=== PATIENT | female | born 1995 | race Caucasian/White ===

== ENCOUNTER 2019-09-27 11:28 | Outpatient (RCR) | payer OTHER, SELFPAY ==
[2019-09-11 15:20] VITALS: BP 122/87; PULSE 94
[2019-09-18 10:25] VITALS: BP 128/78; PULSE 103
[2019-09-27 12:05] VITALS: BP 139/98; PULSE 94
== END 2019-10-11 08:22 | disposition home or self-care (01) ==
LOC: ANHOBOP 11:28
PROVIDERS: PCP Pediatrics; Visit Provider Obstetrics & Gynecology
DX: O26.893 Other specified pregnancy related conditions, third trimester (principal); R03.0 Elevated blood-pressure reading, without diagnosis of hypertension; Z3A.32 32 weeks gestation of pregnancy; Z3A.33 33 weeks gestation of pregnancy; Z3A.35 35 weeks gestation of pregnancy
CPT/HCPCS: 59025

== ENCOUNTER 2019-10-02 10:23 | Outpatient (CLI) | payer OTHER, SELFPAY ==
[2019-10-02 10:47] VITALS: BP 135/100; PULSE 93
[2019-10-02 10:49] LABS: Basophils Absolute Auto 0.1 K/mm3 (0.0-0.1); Basophils Percent Auto 0.4 % (0.2-1.2); Eosinophils Absolute Auto 0.3 K/mm3 (0-0.3); Eosinophils Percent Auto 2.2 % (0-4.4); Hematocrit 38.3 % (37.0-47.0); Hemoglobin 12.6 g/dL (12.0-15.0); Immature Granulocyte Absolute 0.08 K/mm3 (0.00-0.031); Immature Granulocyte Percent A 0.5 % (0-0.5); Lymphocytes Percent Auto 16.9 % (18.3-44.2); Mean Corpuscular HGB Conc 32.9 g/dl (32-36); Mean Corpuscular Hemoglobin 28.9 pg (26-34); Mean Corpuscular Volume 87.8 fl (80-100); Mean Platelet Volume 11.8 fl (7.4-10.4); Monocytes Absolute Auto 1.4 K/mm3 (0.1-0.6); Monocytes Percent Auto 9.5 % (2.6-8.5); Neutrophils Absolute Auto 10.4 K/mm3 (1.3-6.7); Neutrophils Percent Auto 70.5 % (45.5-73.1); Platelet Count Result 262 k/mm3 (150-375); Red Blood Count 4.36 M/mm3 (4.2-5.4); White Blood Count 14.8 K/mm3 (4.5-10.0)
[2019-10-02 11:01] LABS: Alanine Aminotransferase 13 U/L (4-35); Albumin Level 3.6 g/dL (3.5-5.1); Alkaline Phosphatase 200 U/L (38-126); Aspartate Amino Transferase 18 U/L (14-36); Bilirubin,Total 0.2 mg/dL (0.2-1.3); Blood Urea Nitrogen 5 mg/dL (7-17); Carbon Dioxide 18 mmol/L (22-30); Chloride 105 mmol/L (98-107); Estimated Glomerular Filt Rate > 60; Glucose 89 mg/dL (65-105); Potassium 3.9 mmol/L (3.4-5.0); Sodium 136 mmol/L (137-145); Uric Acid 4.5 mg/dL (2.5-7.5)
[2019-10-02 11:10] VITALS: BP 130/94; PULSE 103
[2019-10-02 11:16] VITALS: BP 137/92; PULSE 86
[2019-10-02 11:28] VITALS: RESP 16; TEMP 36.9
== END 2019-10-02 11:45 | disposition home or self-care (01) ==
LOC: ANHOBOP 10:26 → ANHOBPP 10:29
PROVIDERS: PCP Pediatrics; Visit Provider Obstetrics & Gynecology
DX: O13.9 Gestational [pregnancy-induced] hypertension without significant proteinuria, unspecified trimester (principal); Z3A.00 Weeks of gestation of pregnancy not specified
CPT/HCPCS: 36415; 59025; 80053; 84550; 85025; 99199

== ENCOUNTER 2019-10-06 13:30 | Observation (INO) | payer OTHER, SELFPAY ==
[2019-10-06] VITALS (8 sets, daily range): BP systolic 125–142; BP diastolic 87–105; PULSE 91–110; BMI 34.2
[2019-10-06 14:41] LABS: Basophils Absolute Auto 0.1 K/mm3 (0.0-0.1); Basophils Percent Auto 0.4 % (0.2-1.2); Eosinophils Absolute Auto 0.1 K/mm3 (0-0.3); Eosinophils Percent Auto 1.2 % (0-4.4); Hematocrit 36.6 % (37.0-47.0); Hemoglobin 12.3 g/dL (12.0-15.0); Immature Granulocyte Absolute 0.06 K/mm3 (0.00-0.031); Immature Granulocyte Percent A 0.5 % (0-0.5); Lymphocytes Absolute Auto 2.12 K/mm3 (0.9-3.2); Lymphocytes Percent Auto 18.1 % (18.3-44.2); Mean Corpuscular HGB Conc 33.6 g/dl (32-36); Mean Corpuscular Hemoglobin 29.1 pg (26-34); Mean Corpuscular Volume 86.7 fl (80-100); Mean Platelet Volume 11.5 fl (7.4-10.4); Monocytes Absolute Auto 1.3 K/mm3 (0.1-0.6); Monocytes Percent Auto 10.8 % (2.6-8.5); Neutrophils Absolute Auto 8.1 K/mm3 (1.3-6.7); Platelet Count Result 259 k/mm3 (150-375); Red Blood Count 4.22 M/mm3 (4.2-5.4); Red Cell Distribution Width 13.1 % (11.5-14.5); White Blood Count 11.7 K/mm3 (4.5-10.0)
[2019-10-06 14:52] LABS: Add Urine Microscopic? YES; Alanine Aminotransferase 12 U/L (4-35); Albumin Level 3.4 g/dL (3.5-5.1); Alkaline Phosphatase 219 U/L (38-126); Appearance Urine Cloudy (Clear); Aspartate Amino Transferase 18 U/L (14-36); Bacteria Urine 1+ /hpf; Bilirubin Urine Negative (Negative); Bilirubin,Total 0.3 mg/dL (0.2-1.3); Blood Urine Negative (Negative); Budding Yeast Urine Present /hpf; Calcium 8.6 mg/dL (8.4-10.2); Carbon Dioxide 20 mmol/L (22-30); Chloride 103 mmol/L (98-107); Color Urine Yellow (Yellow); Estimated Glomerular Filt Rate > 60; Glucose 84 mg/dL (65-105); Glucose Urine UA Negative (Negative); Ketones Urine 1+ mg/dL (Negative); Leukocyte Esterase Ur Trace LEU/UL (Negative); Mucus Urine Heavy /lpf; Nitrate Urine Negative (Negative); Potassium 3.5 mmol/L (3.4-5.0); Protein Urine 2+ mg/dL (Negative); Sodium 137 mmol/L (137-145); Specific Grav Ur 1.019 (1.001-1.035); Squamous Epithelial Cell Urine Few /hpf (Few); Uric Acid 5.1 mg/dL (2.5-7.5); Urobilinogen Urine Negative mg/dL (<2.0)
[2019-10-06 14:55] LABS: Blood Urea Nitrogen < 2 mg/dL (7-17)
--- NOTE | 2019-10-06 15:37 | OBADM ---
This patient, Andressa Skaggs, admitted to the OB room OB Post 115 for observation. Patient/family oriented to hospital policies and general routines including ID bracelet, bed and alarms, visiting hours, pain management, procedures, bathroom and other care routines, personal items, smoking policy, room service/diet, call light, and visiting hours. Patient/Family are encouraged to report perceived risks to care and to ask questions if they do not understand what they are told or what they should do.
--- NOTE | 2019-11-06 18:05 | P.PNOB_ITS ---
OB - Triage/Final Diagnosis Evaluation Laboratory results: Laboratory Tests 10/06/19 10/06/19 10/06/19 14:31 14:31 14:31 WBC 11.7 H RBC 4.22 Hgb 12.3 Hct 36.6 L MCV 86.7 MCH 29.1 MCHC 33.6 RDW 13.1 Plt Count 259 MPV 11.5 H Immature Gran % (Auto) 0.5 Neut % (Auto) 69.0 Lymph % (Auto) 18.1 L [place] % (Auto) 10.8 H Eos % (Auto) 1.2 Baso % (Auto) 0.4 Lymph # (Auto) 2.12 [place] # (Auto) 1.3 H Eos # (Auto) 0.1 Baso # (Auto) 0.1 Abs Immat Gran (auto) 0.06 H Absolute Neuts (auto) 8.1 H Absolute Nucleated RBC 0.0 Nucleated RBC % 0.0 Sodium 137 Potassium 3.5 Chloride 103 Carbon Dioxide 20 L BUN < 2 L Creatinine 0.50 L Estim Creat Clear Calc Not Reportable Estimated GFR > 60 Glucose 84 Uric Acid 5.1 Calcium 8.6 Total Bilirubin 0.3 AST 18 ALT 12 Alkaline Phosphatase 219 H Total Protein 7.0 Albumin 3.4 L Urine Color Yellow Urine Appearance Cloudy H Urine pH 6.0 Ur Specific [place] 1.019 Urine Protein 2+ H Urine Glucose (UA) Negative Urine Ketones 1+ H Ur Blood (Man) Negative Urine Nitrate Negative Urine Bilirubin Negative Urine Urobilinogen Negative Leukocyte Esterase Rfl Trace H Urine RBC 3-5 H Urine WBC 4-6 H Ur Squamous Epith Cells Few Urine Bacteria 1+ H Urine Mucus Heavy H Urine Yeast (Budding) Present H Final Diagnosis (1) False labor: Code(s): O47.9 - False labor, unspecified Status: Acute (2) Chronic hypertension affecting : Code(s): O10.919 - Unspecified pre-existing hypertension complicating , u nspecified trimester Status: Acute
== END 2019-10-06 15:49 | disposition home or self-care (01) ==
PROVIDERS: Admitting Provider Obstetrics & Gynecology; Visit Provider Obstetrics & Gynecology
DX: O47.03 False labor before 37 completed weeks of gestation, third trimester (principal); O10.913 Unspecified pre-existing hypertension complicating pregnancy, third trimester; Z3A.36 36 weeks gestation of pregnancy
CPT/HCPCS: 36415; 80053; 81001; 84550; 85025; G0378; G0379

== ENCOUNTER 2019-10-07 18:04 | Outpatient (CLI) | payer OTHER, SELFPAY ==
[2019-10-07 18:22] VITALS: BMI 34.1
[2019-10-07 18:45] LABS: Collection Time Urine 24 HOURS
[2019-10-07 18:49] LABS: Patient Weight 199 Lbs
[2019-10-07 18:50] LABS: Specific Gravity Ur 1.009; Total Volume 24 Hour Urine 1500 ml
[2019-10-07 18:56] LABS: Creatinine Urine 69.3 mg/dL; Total Protein Urine Random 13 mg/dL
[2019-10-07 19:02] LABS: Creatinine Clearance Urine 69.3 ml/min (75-125); Total Protein Urine 24 Hr 13 MG/DAY (28-141)
== END 2019-10-07 18:05 | disposition home or self-care (01) ==
PROVIDERS: Visit Provider Obstetrics & Gynecology
DX: O13.9 Gestational [pregnancy-induced] hypertension without significant proteinuria, unspecified trimester (principal); Z3A.00 Weeks of gestation of pregnancy not specified
CPT/HCPCS: 81050; 82575; 84156

== ENCOUNTER 2019-10-10 06:19 | Inpatient (IN) | payer OTHER, SELFPAY ==
[2019-10-10] VITALS (60 sets, daily range): BP systolic 111–162; BP diastolic 74–114; PULSE 74–131; RESP 16–18; TEMP 36.7–37.7; O2SAT 91–100
[2019-10-10 07:02] LABS: Basophils Percent Auto 0.3 % (0.2-1.2); Eosinophils Absolute Auto 0.2 K/mm3 (0-0.3); Eosinophils Percent Auto 1.5 % (0-4.4); Hematocrit 37.5 % (37.0-47.0); Hemoglobin 12.7 g/dL (12.0-15.0); Immature Granulocyte Absolute 0.08 K/mm3 (0.00-0.031); Immature Granulocyte Percent A 0.6 % (0-0.5); Lymphocytes Absolute Auto 3.01 K/mm3 (0.9-3.2); Lymphocytes Percent Auto 22.2 % (18.3-44.2); Mean Corpuscular HGB Conc 33.9 g/dl (32-36); Mean Corpuscular Hemoglobin 28.7 pg (26-34); Mean Corpuscular Volume 84.8 fl (80-100); Mean Platelet Volume 11.6 fl (7.4-10.4); Monocytes Absolute Auto 1.3 K/mm3 (0.1-0.6); Monocytes Percent Auto 9.6 % (2.6-8.5); Neutrophils Absolute Auto 8.9 K/mm3 (1.3-6.7); Neutrophils Percent Auto 65.8 % (45.5-73.1); Platelet Count Result 273 k/mm3 (150-375); Red Blood Count 4.42 M/mm3 (4.2-5.4); White Blood Count 13.6 K/mm3 (4.5-10.0)
[2019-10-10] MEDS: LACTATED RINGERS 1,000 ML 125 ML IV CONT (07:06)
[2019-10-10] MEDS: AMPICILLIN 2 GM/NS 100 ML 2 GM/100 ML BAG IVPB (07:07)
--- NOTE | 2019-10-10 07:10 | LDADM ---
This patient, Andressa Skaggs, was admitted to Labor/Delivery/Recovery 108 on 10/10/19 at 06:19. Plans for labor, pain management and were discussed with patient. Patient/family oriented to hospital policies and general routines including ID bracelet, bed and alarms, visiting hours, pain management, procedures, bathroom and other care routines, personal items, smoking policy, room service/diet and guest tray routines, security routines, and visiting hours. Patient/Family are encouraged to report perceived risks to care and to ask questions if they do not understand what they are told or what they should do. See OBIX for further documentation.
[2019-10-10 07:54] LABS: HIV 1/2 Ab P24 Ag Result Negative (Negative)
--- NOTE | 2019-10-10 08:34 | WPDOBADMIT ---
Obstetrics - Admit Note Admission Note: record reviewed. Additions to the history and/or subsequent changes in the physical findings follow. 24 y/o at 37 weeks here with CHTN, worsening bp control. No headache or visual field change. A recent 24 hour urine collection returned with an obviously erroneous result, has had 2+ proteinuria on dipstick. Good movement. GBS bacteruria in early preganncy. AVSS (bp elevated) NST reactive TOCO: contractions every 2-5 min ABD soft, nontender, gravid, vertex EXT nontender Cervix 4/50/-2. AROM with clear fluid. Vertex. A: IUP at term with CHTN, worsening bp control. P: Oxytocin. Anticipate .
[2019-10-10 08:48] LABS: Alanine Aminotransferase 13 U/L (4-35); Albumin Level 3.7 g/dL (3.5-5.1); Alkaline Phosphatase 228 U/L (38-126); Aspartate Amino Transferase 41 U/L (14-36); Bilirubin,Total 0.3 mg/dL (0.2-1.3); Carbon Dioxide 18 mmol/L (22-30); Chloride 107 mmol/L (98-107); Estimated Glomerular Filt Rate > 60; Glucose 84 mg/dL (65-105); Potassium 3.2 mmol/L (3.4-5.0); Sodium 135 mmol/L (137-145); Uric Acid 5.1 mg/dL (2.5-7.5)
[2019-10-10 09:07] LABS: Blood Urea Nitrogen < 2 mg/dL (7-17)
[2019-10-10] MEDS: NIFEdipine 10 MG CAPSULE PO (09:10)
[2019-10-10] MEDS: ONDANSETRON INJ 4 MG/2 ML VIAL IV PUSH (10:13)
[2019-10-10] MEDS: AMPICILLIN 1 GM/NS 50 ML 1 GM/50 ML BAG IVPB (10:51)
--- NOTE | 2019-10-10 13:10 | PM.OBDSVD ---
DS: Diagnosis Discharge Diagnosis (1) Chronic hypertension affecting : Code(s): O10.919 - Unspecified pre-existing hypertension complicating , unspecified trimester Status: Acute (2) Normal delivery at term: Code(s): O80 - Encounter for full-term uncomplicated delivery Status: Acute OB - DS: Summary OB Procedures : None OB Procedures Intrapartum: Spontaneous Vag Delivery OB Procedures: : None DS: Data Data Completed and Pending Labs on day of discharge: Labs from last 24 hours 10/10/19 10/10/19 10/10/19 08:30 06:42 06:42 WBC RBC Hgb Hct MCV MCH MCHC RDW Plt Count MPV Immature Gran % (Auto) Neut % (Auto) Lymph % (Auto) [place] % (Auto) Eos % (Auto) Baso % (Auto) Lymph # (Auto) [place] # (Auto) Eos # (Auto) Baso # (Auto) Abs Immat Gran (auto) Absolute Neuts (auto) Absolute Nucleated RBC Nucleated RBC % Sodium 135 L Potassium 3.2 L Chloride 107 Carbon Dioxide 18 L BUN < 2 L Creatinine 0.50 L Estim Creat Clear Calc Not Reportable Estimated GFR > 60 Glucose 84 Uric Acid 5.1 Calcium 9.0 Total Bilirubin 0.3 AST 41 H ALT 13 Alkaline Phosphatase 228 H Total Protein 7.0 Albumin 3.7 RPR Pending HIV 1&2 Ab/P24 Ag 4thGn Blood Type A Positive Antibody Screen Negative 10/10/19 10/10/19 06:42 06:42 WBC 13.6 H RBC 4.42 Hgb 12.7 Hct 37.5 MCV 84.8 MCH 28.7 MCHC 33.9 RDW 13.0 Plt Count 273 MPV 11.6 H Immature Gran % (Auto) 0.6 H Neut % (Auto) 65.8 Lymph % (Auto) 22.2 [place] % (Auto) 9.6 H Eos % (Auto) 1.5 Baso % (Auto) 0.3 Lymph # (Auto) 3.01 [place] # (Auto) 1.3 H Eos # (Auto) 0.2 Baso # (Auto) 0.0 Abs Immat Gran (auto) 0.08 H Absolute Neuts (auto) 8.9 H Absolute Nucleated RBC 0.0 Nucleated RBC % 0.0 Sodium Potassium Chloride Carbon Dioxide BUN Creatinine Estim Creat Clear Calc Estimated GFR Glucose Uric Acid Calcium Total Bilirubin AST ALT Alkaline Phosphatase Total Protein Albumin RPR HIV 1&2 Ab/P24 Ag 4thGn Negative Blood Type Antibody Screen Discharge Plan Discharge Attending physician on discharge: Cachorro Paredes Discharging Clinician: Cachorro Paredes Patient Disposition: Home, Self-Care Activity: pelvic rest Diet: regular Discharge Instructions: Education: Mom and Baby Guide Given to: Mother Follow-Up: Call your delivering provider's office for an appointment to be seen in: 1 Week Mom and baby should come to the [facility] for the follow-up appointment. Appointment Date/Time: October 13, 2019 at 9:00 am What to expect at your follow-up visit: Blood Pressure Check Call [phone] if you are unable to keep your appointment time. BREAST CARE: 1. Wear a snug supportive bra. 2. For engorgement discomfort: Breast Feeding: A. Apply warm moist washcloths B. Express milk as needed to relieve engorgement C. Wear loose clothing Bottle Feeding: A. May apply ice packs 3. For sore nipples: A. Identify correct latch-on B. Apply warm moist washcloths before and after nursing C. Air dry nipples after nursing D. May apply Lansinoh cream to nipples PERINEAL CARE: 1. Until bleeding stops, use your zaida bottle after urinating 2. Change your pad frequently throughout the day 3. You may take sitz baths several times a day (fill your bathtub with warm water and soak for 20 minutes.) Do NOT bathe in the water 4. No tub baths until seen by your physician - You may shower ACTIVITY: 1. Rest as much as possible. 2. Do not exercise or lift anything heavier than your baby (such as laundry or other children.) 3. Avoid stairs or driving as much as possible. 4. Do not put anything i
--- NOTE | 2019-10-10 13:11 | PM.OBPRVD ---
OB - Delivery Note Procedure Delivery date: 10/10/19 Procedure: Induction of labor with Induction method: AROM and per pitocin protocol Delivery monitor: external FHT, external uterine and internal uterine Route of delivery: Laceration description: None Specimen: Yes (cord blood, placenta) Estimated blood loss (mL): 80 Anesthesia type: None Disposition: PACU Complications: None Narrative: 24 y/o at 37 weeks gestation who presented to the hospital for induction of labor because of worsening blood pressure control in the setting of chronic hypertension. Oxytocin was administered intravenously. Amniotomy was performed with return of clear fluid. Her labor progressed and her cervix dilated completely. She pushed with good effort and delivered the 's head to the perineum, followed by the body. The nose and mouth were bulb suctioned. After a delay, the cord was clamped and cut. The was handed off the field. Cord blood was collected. The placenta delivered spontaneously and was grossly normal in appearance. The usual 3 vessel cord was noted. The perineum was intact. The cervix was inspected and was free of laceration. Sponge, needle and instrument counts were correct. The patient was taken to recovery room in stable condition. The went to the nursery in stable condition. I was present and scrubbed for the entire delivery. Baby Date of : 10/10/19 Time of : 12:51 Weeks of gestation at delivery: 37 Infant gender: Male Weight (pounds): 6 Weight (ounces): 13 presentation: vertex position: Right Occiput Posterior Placenta delivery description: Spontaneous and Normal Configuration cord vessel description: 3 Vessels score one minute: 8 score five minutes: 9
--- NOTE | 2019-10-11 01:00 | PC.NURSE ---
Breast pump provided due to 's inability to latch. Instructions given on breast pump care and usage, pumping schedule, nipple care, and collection and storage of breast milk. Encouraged [id number], breast massage and manual expression to stimulate supply. Pumping log provided and reviewed. Assessed patient for correct flange size, placement and draw. Patient verbalizes and demonstrates understanding of instructions.
[2019-10-11] MEDS: IBUPROFEN 600 MG TABLET PO ×2 (04:24→14:57)
[2019-10-11 05:42] LABS: Hematocrit 33.4 % (37.0-47.0); Hemoglobin 11.1 g/dL (12.0-15.0)
[2019-10-11 07:21] LABS: Rapid Plasma Reagin Non-Reactive (NonReactive)
[2019-10-11 08:10] VITALS: BP 127/90; PULSE 90; RESP 16; TEMP 36.6; O2SAT 99
--- NOTE | 2019-10-11 09:30 | PC.NURSE ---
Consult with pt., other reports bj6 has been sleepy and having difficulties with latch and maintaining latch. Mother has initiated pumping and have supplemented a few times since . Discussed and the 37 week , with possible sleepiness and inconsistency with latch and effective suckling. Suggested mother put to breast each feeding for 10-15 minutes, the follow with 10-15 mls of supplement of EBM Formula then pump for 15 minutes. Mother was set up with pumping and is pumping without difficulties or discomfort. Assisted with to breast. Reviewed positioning/alignment, holding breast and asymmetrical latch on. Infant was sleepy and made no effort to latch. Attempt for 10 minutes, mother will follow above plan with supplementation and pumping.
[2019-10-11] MEDS: MULTIVIT/MIN/PREN/FOL AC/IRON TABLET 1 TAB PO (11:21)
[2019-10-11] MEDS: MEASLES,MUMPS,RUBELLA VACCINE 0.5 ML VIAL SUB-Q (11:22)
[2019-10-11] MEDS: LANOLIN (LANSINOH) 7.5 GM CREAM 1 APPLIC TOPICAL (16:50)
--- NOTE | 2019-10-11 17:26 | PM.OBPNVD ---
OB - PN: Subj Subjective Date/time seen: 10/11/19 1200 Narrative: Pain OK. Would like circumcision for son. OB - PN: Obj Data Labs CBC & Chem 7: 10/11/19 04:18 10/10/19 08:30 Labs: Laboratory Results - last 24 hr 10/10/19 10/11/19 06:42 04:18 Hgb 11.1 L Hct 33.4 L RPR Non-reactive OB - PN A/P Plan Comments: A: PPD#1, doing well. P: Routine care. Reviewed circumcision. Exam Psych: Other: AVSS ABD soft, nontender, fundus firm. EXT nontender
[2019-10-11 20:45] VITALS: BP 142/99; PULSE 85; RESP 16; TEMP 36.9
[2019-10-12 08:20] VITALS: BP 118/89; PULSE 70; RESP 16; TEMP 37.2; O2SAT 99
--- NOTE | 2019-10-12 08:30 | PC.NURSE ---
PT introductions made and plan of care discussed per post , pain management, breast feeding, daily care activities and pending discharge to home. PT verbalized understanding of such care.
--- NOTE | 2019-10-12 08:50 | PC.NURSE ---
Consulted with patient, mother states is sporadic with eagerness and feeding. Once her is awake and will latch and other feedings it is difficult to bottle feed. Discussed this is normal for the early 37 week . Reviewed feeding cues, frequencies, duration of feedings, feeding elimination flow sheet, and signs of adequate intake. Demonstrated stimulation techniques to wake for feeding. Assisted with infant to breast. Infant make weak attempts to latch and was unable to maintain. Mother has good colostrum easily expressed. Offered and explained the nipple shield. Mother is willing to attempt with shield. Nipple shield provided to mother due to ineffective feeding. Discussed nipple shield precautions and possible complications. Instructions given on application and cleaning of shield. Patient able to return demonstration on proper application of shield. Discussed the need to initiate pumping if continues to nurse with the shield. Patient verbalizes understanding. Reviewed positioning/alignment in football, holding breast in C hold and guided asymmetrical latch on. Discussed rational for each. With shield in place was able to latch correctly. Infant nursed eagerly with steady draws and occasional swallowing followed with long pausing. Reviewed signs of a correct latch, effective nursing and suck swallow ratio. Infant was able to maintain latch without discomfort to mother. Nipple care reviewed. Advised to start a regular feeding plan to attempt to breast each feeding for 15 minutes, then supplement 15 mls EBM/formula followed with pumping for 10-15 minutes. Reviewed infant may require increasing amounts of supplement until her milk is in and feeding more regularly at breast. Mother is pleased with regular feeding plan as she is discharging today.
--- NOTE | 2019-10-12 08:53 | PM.OBPNVD ---
OB - PN: Subj Subjective Date/time seen: 10/12/19 08:53 Narrative: Pain OK. Would like to go home. OB - PN: Obj Data Labs CBC & Chem 7: 10/11/19 04:18 10/10/19 08:30 OB - PN A/P Plan Comments: A: PPD#2, doing well. P: Home to f/u 6 weeks. Exam Psych: Other: AVSS ABD soft, nontender, fundus firm EXT nontender
--- NOTE | 2019-10-12 09:00 | PC.NURSE ---
Mother is feeding as required and waking to feed if needed. is currently meeting outcomes for weight, output, jaundice and feeding frequencies. Mother states she feels confident to continue with feeding plan of breast, supplement and pump at home. Reviewed transition to breast milk, signs of adequate intake, and engorgement/relief. Instructed to call ICP if intake/output less than required. Reviewed regular medications mother is taking. Information provided per [place]. Reviewed community resources on the [employer] website and in the Mom/Baby guide. Information on outpatient services provided. Discussed when to discontinue supplement and pumping: suggested mother continue to offer supplement until feeding can be observed by follow up RN or at OP LC apt. Mother has no further questions at this time.
[2019-10-12 09:11] VITALS: PULSE 70; RESP 16; O2SAT 99
[2019-10-12] MEDS: DOCUSATE SODIUM 100 MG CAPSULE PO (09:11)
[2019-10-12] MEDS: IBUPROFEN 600 MG TABLET PO (09:11)
[2019-10-12] MEDS: MULTIVIT/MIN/PREN/FOL AC/IRON TABLET 1 TAB PO (09:12)
--- NOTE | 2019-10-12 12:00 | PC.NURSE ---
Patient viewed the discharge video Mother & Baby Care, The First Two Weeks . Patient was given the opportunity and encouraged to ask questions. Patient verbalized understanding of information shared and has been given the mother/baby guide for home reference.
--- NOTE | 2019-10-12 14:30 | PC.NURSE ---
PT received discharge instructions per protocol and verbalized understanding of such instructions. Follow up appts confirmed
--- NOTE | 2019-10-12 15:05 | PC.NURSE ---
PT discharged to home ambulatory accompanied by significant other and to waiting war. Follow up appts confirmed
[2019-10-13 09:46] VITALS: BP 138/88; PULSE 85; RESP 18; TEMP 36.8
== END 2019-10-12 15:05 | disposition home or self-care (01) | DRG 807 ==
LOC: ANHLDR 13:11 → ANHOB2 15:40
PROVIDERS: Admitting Provider Obstetrics & Gynecology; Visit Provider Obstetrics & Gynecology
DX: O13.4 Gestational [pregnancy-induced] hypertension without significant proteinuria, complicating childbirth (principal); Z37.0 Single live birth; Z3A.37 37 weeks gestation of pregnancy; O99.824 Streptococcus B carrier state complicating childbirth
CPT/HCPCS: 36415; 80053; 84550; 85014; 85018; 85025; 86592; 86703; 86850; 86900; 86901; 88307; 90710; A9270; G0432; J0290; J2405; J2590; J3010; J7120

== ENCOUNTER 2020-12-20 06:40 | Emergency (ER) | payer OTHER, SELFPAY ==
[2020-12-20 06:45] VITALS: BP 140/109; PULSE 101; RESP 18; TEMP 36.5; O2SAT 98
--- NOTE | 2020-12-20 07:31 | ED.BACK ---
HPI - Back Pain/Injury General Chief Complaint: Back Pain/Injury Stated Complaint: neck and upper back pain Source: patient Mode of arrival: ambulatory Limitations: no limitations History of Present Illness HPI Narrative: this is a 25-year-old female presents with a 2 day history of left upper back and neck spasm that started 2 days ago after she lifted her child and felt sharp pain and muscle spasm, has no numbness or tingling radiating down her arms does have some radiation of her pain into her left upper back neck and left shoulder area has good range of motion in her shoulder with decreased range of motion in her neck secondary to muscle spasm and pain, there is no headache no blurry vision no fever chills no nausea vomiting. MD elicited complaint: back pain Onset (ago): day(s) Timing: constant Severity: moderate Pain scale (0-10): 5 Similar Symptoms Previously: No Quality: spasming Location: left upper back Radiation: neck Exacerbating factors: movement Relieving factors: immobilization Context: while lifting and turning/twisting Related Data Allergies Allergy/AdvReac Type Severity Reaction Status Date / Time nickel Allergy Unknown Skin Verified 10/05/19 12:19 Reaction Review of Systems Review of Systems: All systems reviewed & are unremarkable except as noted in HPI and below PMFSH Past Medical History Medical History Patient denies medical problems Family History Family History Grandparent Lung cancer Father Crohn's disease Hypertension Social History Social History Smoking status: Never smoker Substance use: never Spiritual care concerns: No Exam Const: General: no acute distress Orientation/consciousness: patient oriented x3 HENMT: Head: normal to inspection Eyes: Pupils: Equal, round and reactive pupils present Neck: Other: left upper back and neck muscle tenderness with palpation with decreased range of motion of her neck secondary to spasm and pain with no radiculopathy no numbness or tingling. Chest: Chest palpation & inspection: normal inspection of the chest Resp: Effort & Inspection: normal respiratory effort Auscultation: clear to auscultation bilaterally Cardio: Rate: regular rate Rhythm: regular rhythm : General: Yes no CVA tenderness Back/Spine/Pelvis: Back: no CVA tenderness Skin: General skin exam: normal color Rashes: no rashes Psych: Appearance: grossly normal Mental Status: mental status grossly normal Affect: normal affect Course Course Emergency Course: Patient received Toradol IM for neck pain and muscle spasm advised patient to take medicine that was sent to her pharmacy and if symptoms persists should follow-up with her primary care doctor for possible MRI. Vital Signs Vital signs: Vital Signs Temperature 36.5 C 12/20/20 06:45 Pulse Rate 101 H 12/20/20 06:45 Respiratory Rate 18 12/20/20 06:45 Blood Pressure 140/109 H 12/20/20 06:45 Pulse Oximetry 98 12/20/20 06:45 Temperature 36.5 C 12/20/20 06:45 Pulse Rate 101 H 12/20/20 06:45 Respiratory Rate 18 12/20/20 06:45 Blood Pressure 140/109 H 12/20/20 06:45 Pulse Oximetry 98 12/20/20 06:45 Critical Care Time Critical Care Time Critical Care Time: No Discharge Plan Discharge Clinical Impression: Muscle strain Patient Disposition: Home, Self-Care Condition: Stable Instructions: Antibiotic Form, Cervical Strain (ED) Additional Instructions: take medicine as prescribed and follow-up with primary care physician in approximately 10 days if symptoms persist or worsen. Can use a warm compress to affected area along with medication prescribed. Prescriptions: New naproxen 500 mg tablet 500 mg PO BID Qty: 14 RF: 0 cyclobenzaprine 5 mg tablet 5 mg PO TID Qty: 20 RF: 0
[2020-12-20] MEDS: KETOROLAC (*BKC) 60 MG/2 ML VIAL IM (07:35)
[2020-12-20 08:07] VITALS: BP 138/106
== END 2020-12-20 08:09 | disposition home or self-care (01) ==
PROVIDERS: Emergency Provider Emergency Medicine
DX: T14.8XXA Other injury of unspecified body region, initial encounter (principal); X50.9XXA Other and unspecified overexertion or strenuous movements or postures, initial encounter
CPT/HCPCS: 96372; 99283; J1885

== ENCOUNTER 2024-07-13 12:29 | Outpatient (CLI) | payer OTHER, SELFPAY ==
--- NOTE | 2024-07-13 12:30 | ECG_ITS ---
Test Date: 2024-07-13 12:52:39 Measurements Intervals [place] Rate: 63 P: 10 KS: 146 QRS: 7 QRSD: 104 T: 17 QT: 414 QTc: 424 Interpretive Statements SINUS RHYTHM WITH SINUS ARRHYTHMIA INCOMPLETE RIGHT BUNDLE BRANCH BLOCK [90+ ms QRS DURATION, TERMINAL R IN V1/V2, 40+ ms S IN I/aVL/V4/V5/V6] No previous ECG available for comparison Electronically Signed On 07-13-2024 13:03:30 SPRAY I PAINTER by Marilynn Miranda M.D.
== END 2024-07-13 12:30 | disposition home or self-care (01) ==
LOC: ANHSURGERY 12:36
PROVIDERS: PCP Family Medicine; Visit Provider Obstetrics & Gynecology
DX: O16.9 Unspecified maternal hypertension, unspecified trimester (principal); Z3A.00 Weeks of gestation of pregnancy not specified; I45.10 Unspecified right bundle-branch block
CPT/HCPCS: 93005

== ENCOUNTER 2024-07-18 01:27 | Day surgery (SDC) | payer OTHER, SELFPAY ==
--- NOTE | 2024-07-11 17:40 | PC.NURSE ---
Report to the Outpatient Waiting Room, entrance under the green pavilion located off [facility], at time 1045 on date 07/18/24. Planned Procedure Time: 1245.? Time changes happen often and if your time is changed the preop area will call you the afternoon before. - You and your visitor will be asked to self-screen and do not enter if you have any COVID symptoms. Please call surgeon if you need to reschedule. - A mask is optional within the hospital at this time. Patients may have clear liquids (water, carbonated beverages, clear teas, apple juice) until 3 hours prior to surgery with a maximum of 20 ounces. 0945 - No food from midnight until time of surgery and no smoking. This includes no chewing gum, candy or mints. - Infants may have breast milk until 4 hours before surgery, formula 6 hours prior to surgery. - Children will be allowed to drink immediately following surgery.? If applicable, please bring a bottle or sippy cup to assist with drinking. Juice, water, soda, and popsicles are readily available.? For infants on formula, please bring formula the day of surgery.? Pacifiers are allowed. Take only the following medications with a SIP of water on the morning of surgery: amlodipine DO NOT STOP ANY OF YOUR OTHER PRESCRIPTION MEDICATIONS PRIOR TO SURGERY EXCEPT THE FOLLOWING Medications to discontinue per physician N/A Date to take last dose N/A Please no make-up, nail wolof, hairspray, perfume, deodorant, or body powder the day of surgery.? No jewelry (including any body piercings) or valuables the day of surgery, leave them at home.? Please take a shower or bath the night before, or the morning of, surgery with an antibacterial soap.? Wear comfortable, loose fitting clothing.? Children are encouraged to wear pajamas. - Jewelry must be removed prior to entering the operating room.? Rings and piercings that are not removed may be cut off. - The hospital will not accept responsibility for valuables.? - Please leave all valuables, including medications, at home the day of surgery. If you are going home after surgery, a licensed tractor driver must drive you home.? - NO public transportation without another adult if you receive anesthesia. - We recommend that an adult stay with you for 24 hours following discharge. - We also recommend that you do not drive, make important decision, drink alcoholic beverages, or take any drugs that were not prescribed by your health care provider for at least 24 hours after your discharge time. For Pediatric surgeries, we recommend two adults accompany the child home. Follow any additional instructions given to you from your surgeon. Telephone instructions given to Patient- Andressa Skaggs and asked if any additional questions and then verbalized understanding. Patient advised to call surgeon office or pre surgery nurse liaison [phone] if any additional questions.
[2024-07-11 17:50] VITALS: BMI 33.2
[2024-07-18] VITALS (13 sets, daily range): BP systolic 96–134; BP diastolic 60–95; PULSE 54–109; RESP 14–18; TEMP 36.4; O2SAT 94–100; BMI 33.5
--- NOTE | 2024-07-18 11:28 | PM.IMHP ---
H&P: HPI History of Present Illness Date/Time: 07/18/24 11:28 Chief Complaint: Desired sterility Narrative: 29 y/o g with a Mirena IUD. She desires permanent contraception with bilateral salpingectomies. She does not desire future childbearing. Review of Systems Review of Systems: All systems reviewed & are unremarkable except as noted in HPI and below PMFSH Past Medical History Medical History History of chronic hypertension Patient denies medical problems Family History Family History Grandparent Lung cancer Father Crohn's disease Hypertension Social History Social History Smoking status: Never smoker Substance use: never Spiritual care concerns: No Meds Home Medications and Allergies Home Medications ?Medication ?Instructions ?Recorded ?Confirmed ?Type amlodipine 10 mg tablet 10 mg PO DAILY 07/11/24 07/11/24 History losartan 25 mg tablet 25 mg PO HS 07/11/24 07/11/24 History Allergies Allergy/AdvReac Type Severity Reaction Status Date / Time nickel Allergy Unknown Skin Verified 07/11/24 17:27 Reaction Exam Const: Orientation/consciousness: patient oriented x3 Other: Well-developed, well-nourished female in no acute distress. Neck: Thyroid: thyroid normal Lymphatic: no lymphadenopathy noted (in neck, axilla or inguinal nodes) Resp: Effort & Inspection: normal respiratory effort Auscultation: clear to auscultation bilaterally Cardio: Rate: regular rate Rhythm: regular rhythm Heart sounds: S1 normal heart sound present and S2 normal heart sound present GI: Other: ABD: Soft, nontender, nondistended. No guarding or rebound tenderness. No hepatosplenomegaly. : General: Yes no CVA tenderness Other: External genitalia: normal female hair distribution, without lesion. Urethral meatus: no lesion, non prolapsed. Bladder: no mass, nontender Vagina: well-estrogenized, without lesion or discharge. No cystocele or rectocele. Cervix: no lesion or discharge. Uterus: small, anteverted, freely mobile, nontender Adnexa: no mass or tenderness. Anus/perineum: no lesions, nontender Back/Spine/Pelvis: Back: no CVA tenderness Skin: General skin exam: normal color and no rashes or lesions noted Neuro: General: patient oriented x3 Extrem: Other: Extremities: nontender with no edema Psych: Mental Status: mental status grossly normal Affect: normal affect Assessment and Plan Assessment and plan (1) Unwanted fertility: Code(s): Z30.09 - Encounter for other general counseling and advice on contraception Status: Acute Assessment and Plan: A: Desired sterility. P: She understands there are temporary methods of contraception available to her. She understands that there are nonsurgical options as well as surgical options. She understands that tubal sterilization will render her permanently sterile. She understands that there is a failure rate associated with tubal sterilization, as well as an inherent ectopic gestation risk. Furthermore, she understands risks of surgery to include risks of anesthesia, risks of pain, infection, bleeding, blood products, thromboembolic phenomena and damage to adjacent structures such as bowel, bladder, ureters, blood vessels and nerves. She understands all these risks and elects to proceed with laparoscopic bilateral salpingectomies and removal of Mirena IUD.
[2024-07-18] MEDS: LACTATED RINGERS 1,000 ML 30 ML IV CONT ×2 (11:30→13:32)
[2024-07-18] MEDS: KETOROLAC 15 MG/ML VIAL (*BKC) IV PUSH (11:45)
[2024-07-18] MEDS: ACETAMINOPHEN 500 MG TABLET 1000 MG PO (11:45)
[2024-07-18 11:52] LABS: BEDSIDEPREGUCG Negative (Negative)
--- NOTE | 2024-07-18 12:04 | P.PNAN_ITS ---
Anes - Initial Pre Proc Eval Procedure: Operation Date: 07/18/24 12:45 Proposed Procedures p Laparoscopic Bilateral Salpingectomy, Removal of Intrauterine Device - Cachorro Paredes MD Date/Time: 07/18/24 12:04 Surgeon: Cachorro Paredes MD Pre Op Diagnosis: desires sterilization Patient Data Age: 29 Gender: F Height: 1.63 m Weight: 88.55 kg Last Vital Signs Temp 36.4 C 07/18/24 11:30 Pulse 83 07/18/24 11:30 Resp 16 07/18/24 11:30 BP 121/88 07/18/24 11:30 Pulse Ox 100 07/18/24 11:30 O2 Del Method Room Air 07/18/24 11:30 Allergies Allergy/AdvReac Type Severity Reaction Status Date / Time nickel Allergy Unknown Skin Verified 07/18/24 11:44 Reaction Home Medications ?Medication ?Instructions ?Recorded ?Confirmed ?Type amlodipine 10 mg tablet 10 mg PO DAILY 07/11/24 07/18/24 History losartan 25 mg tablet 25 mg PO HS 07/11/24 07/18/24 History Laboratory Tests 07/18/24 11:30 POC Urine HCG, Qual Negative (Negative) Patient hx anesthesia problems: none Family hx anesthesia problems: post op nausea/vomiting Results Review: All pre-operative results and documents have been reviewed as part of the pre- operative evaluation. [facility] Past Medical History Medical History History of chronic hypertension Patient denies medical problems Family History Family History Grandparent Lung cancer Father Crohn's disease Hypertension Social History Social History Smoking status: Never smoker Substance use: never Spiritual care concerns: No Anes - Eval Final PreProcedure Day of Procedure 07/18/24 12:04 Patient weight: obese Heart: regular rate and rhythm Lungs: clear to auscultation Airway: Mallampati scale class II Neurological: alert and oriented Last oral intake: >/= 8 hours ASA classification: II Emergent: no Anesthetic plan: proceed Anesthesia type and monitoring: general ETT and standard monitoring Results Review: All pre-operative results and documents have been reviewed as part of the pre- operative evaluation. Informed Consent: The patient's anesthetic plan and its attendant risks and benefits were discussed with the patient/family/POA. Questions were solicited and answers p rovided to the satisfaction of the patient/family/POA.
--- NOTE | 2024-07-18 12:37 | WPDHPUPDATE1 ---
History and Physical Update Update Date/Time: 07/18/24 12:37 History and Physical has been reviewed, including an updated exam of the patient. There are NO changes in the patient's condition. Risks, benefits, and alternatives have been discussed and questions answered. Patient agrees to proceed with procedure.
--- NOTE | 2024-07-18 13:29 | P.OP_ITS ---
Procedure Note - Detailed Date of Procedure 07/18/24 Pre-op Diagnosis Desired sterilization Post-op Diagnosis Same Procedure Performed Laparoscopic bilateral salpingectomies Removal of IUD Surgeon Cachorro Paredes MD Anesthesia General Findings Unremarkable IUD. Unremarkable uterus, bilateral ovaries and tubes, anterior and posterior cul de sac, bilateral round and uterosacral ligaments. Normal- appearing pelvis. Description of Procedure The patient was taken to the operating room where general endotracheal anesthesia was administered. She was prepared and draped in the usual sterile fashion in dorsal lithotomy position. The bladder was drained with a red rubber catheter. A sterile speculum was placed into the vagina. The IUD strings were grasped with a ring forceps. The IUD was easily removed, intact, and discarded. The anterior lip of the cervix was grasped with a single-tooth tenaculum. The acorn uterine manipulator was placed. The speculum was withdrawn. Gloves were changed and attention was turned the abdomen. An infraumbilical skin incision was made with a scalpel. The abdomen was tented and a 5mm bladeless trocar was advanced under direct laparoscopic visualization. Pneumoperitoneum was administered using carbon dioxide gas. A survey of the pelvis and abdomen revealed the findings noted above. Additional 5 mm incisions were made in the right and left lower quadrants, and 5 mm ports were advanced using bladeless trocars under direct laparoscopic visualization. The fallopian tube on the right side was grasped and elevated and dissected off the ovary using the Ligasure device. The tube was then amputated from the uterus and passed off to be sent to pathology. The left tube was similarly dissected free and excised. Hemostasis was excellent. The ports were withdrawn. The gas was allowed to escape. The skin incisions were reapproximated using interrupted subcuticular sutures of 4 0 Vicryl. Dermaflex was applied externally. The vaginal instrumentation was withdrawn and hemostasis was excellent here as well. Sponge, lap, needle and instrument counts were correct. The patient was awakened and taken to recovery room in stable condition. I was present and scrubbed through the entire procedure. Implants None Estimated Blood Loss 20 Drains No Packing No Pathology Yes (Bilateral Fallopian tubes) Complications None Condition Stable Disposition PACU
[2024-07-18] MEDS: fentaNYL CITRATE INJ (*CRX) 100 MCG/2 ML VIAL 25 MCG IV PUSH (13:47)
== END 2024-07-18 16:32 | disposition home or self-care (01) ==
PROVIDERS: PCP Family Medicine; Visit Provider Obstetrics & Gynecology
PROC: (CPT 49320; principal; 2024-07-18 12:45)
DX: Z30.2 Encounter for sterilization (principal); N83.8 Other noninflammatory disorders of ovary, fallopian tube and broad ligament; G89.18 Other acute postprocedural pain; I10 Essential (primary) hypertension; E66.9 Obesity, unspecified; Z68.33 Body mass index [BMI] 33.0-33.9, adult; Z80.1 Family history of malignant neoplasm of trachea, bronchus and lung
CPT/HCPCS: 58661; 88302; A9270; J0330; J1100; J1200; J1630; J1885; J2003; J2250; J2405; J2704; J3010; J7030; J7120; Q9968